=== PATIENT | female | born 1945 | race Caucasian/White ===

== ENCOUNTER 2019-12-26 20:49 | Inpatient (IN) | payer OTHER ==
[~2019-12-26] VITALS: Ht 157.5 cm; Wt 57.2 kg
[2019-12-26] MEDS ORDERED: SYNTHROID125 MCG (20:59)
[2019-12-26] MEDS ORDERED: LYRICA150 MG (20:59)
[2019-12-26] MEDS ORDERED: PREDNISONE50 M1 (21:00)
[2019-12-27] MEDS ORDERED: RAYOS5 MG PO (10:45)
== END 2019-12-29 14:53 | disposition home or self-care (01) | DRG 603 ==
LOC: ER 20:49 → SURH 12-27 07:25 → SEC-K 12-27 07:25 → O/R 12-27 07:25 → SURH 12-27 15:24
PROVIDERS: ADMIT Specialist; ATTEND Specialist
PROC: 0Y9D00Z Drainage of Left Upper Leg with Drainage Device, Open Approach (ICD-10-PCS; principal; 2019-12-27 10:00)
DX: L03.116 Cellulitis of left lower limb (principal); B95.61 Methicillin susceptible Staphylococcus aureus infection as the cause of diseases classified elsewhere; E03.8 Other specified hypothyroidism; M06.9 Rheumatoid arthritis, unspecified; Z20.828 Contact with and (suspected) exposure to other viral communicable diseases